=== PATIENT | female | born 2000 | race African-American/Black ===

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

== ENCOUNTER 2022-01-14 17:32 | Observation (INO) | payer OTHER, SELFPAY ==
[2022-01-14] VITALS (10 sets, daily range): BP systolic 121–146; BP diastolic 54–102; PULSE 96–126
--- NOTE | 2022-01-14 18:16 | PM.OBTRLD ---
OB - Triage/Final Diagnosis Visit Information Date of evaluation: 01/14/22 Reason for evaluation: threatened labor Comments/Additional reasons for admission: I have assessed the risk for this patient, Carol Alex Mcintosh, and determined that she would benefit from observation care.
--- NOTE | 2022-01-14 22:54 | PC.NURSE ---
1817- Dr. Yara Stallings in dept. informed of pt admission for bleeding and abdominal cramping. no blood noted on visual exam. FHT reviewed. order for SVE received. 1822- Dr. Yara Stallings informed of cervical exam of closed and soft. order received to monitor pt for a couple hours and may d/c home if reactive NST and no further bleeding.
== END 2022-01-14 20:40 | disposition home or self-care (01) ==
PROVIDERS: Admitting Provider Obstetrics & Gynecology; Visit Provider Obstetrics & Gynecology
DX: O47.03 False labor before 37 completed weeks of gestation, third trimester (principal); Z3A.36 36 weeks gestation of pregnancy
CPT/HCPCS: G0378; G0379

== ENCOUNTER 2022-01-22 14:56 | Observation (INO) | payer OTHER, SELFPAY ==
--- NOTE | ~2022-01-22 | US_ITS ---
EXAMINATION: US OB limited w BPP DATE: 01/22/2022 16:54 INDICATION: Nonreactive nonstress test. Third trimester. TECHNIQUE: Real-time pelvic ultrasound was performed. COMPARISON: None. FINDINGS: There is a single living fetus in vertex presentation. The placenta is anterior. heart rate is 152 beats per minute (bpm). The amniotic fluid index is 9.0 cm, which is normal. Biophysical profile performed by the technologist: breathing (30 sec sustained breathing in 30 minutes): 2 out of 2 movement (3 gross body movements in 30 minutes): 2 out of 2 tone (one episode of hfsmsax-[id number]-qxogpbf limb movement): 2 out of 2 Amniotic fluid pocket (2 cm): 2 out of 2 Total score: 8 out of 8 IMPRESSION: 1. Single living fetus in vertex presentation. 2. Biophysical profile 8 out of 8. Reviewed, dictated and finalized at location A.
--- NOTE | 2022-01-22 17:14 | PM.OBTRLD ---
OB - Triage/Final Diagnosis Visit Information Date of evaluation: 01/22/22 Reason for evaluation: threatened labor Comments/Additional reasons for admission: I have assessed the risk for this patient, Carol Alex Mcintosh, and determined that she would benefit from observation care.
--- NOTE | 2022-01-22 17:34 | OBADM ---
This patient, Carol Mcintosh, admitted to the OB room Labor/Delivery/Recovery 107 for observation. Patient/family oriented to hospital policies and general routines including ID bracelet, bed and alarms, visiting hours, pain management, procedures, bathroom and other care routines, personal items, smoking policy, room service/diet, and visiting hours. Patient/Family are encouraged to report perceived risks to care and to ask questions if they do not understand what they are told or what they should do.
== END 2022-01-22 17:30 | disposition home or self-care (01) ==
PROVIDERS: Admitting Provider Obstetrics & Gynecology; Visit Provider Obstetrics & Gynecology
DX: O47.1 False labor at or after 37 completed weeks of gestation (principal); Z3A.37 37 weeks gestation of pregnancy
CPT/HCPCS: 76815; 76819; 84112; G0378; G0379

== ENCOUNTER 2022-01-29 06:04 | Inpatient (IN) | payer OTHER, SELFPAY ==
[2022-01-29] VITALS (77 sets, daily range): BP systolic 89–161; BP diastolic 40–98; PULSE 71–122; RESP 16; TEMP 36.2–36.8; O2SAT 100; BMI 28.6
[2022-01-29 06:56] LABS: Basophils Percent Auto 0.3 % (0.2-1.2); Eosinophils Percent Auto 0.3 % (0-4.4); Hematocrit 35.1 % (37.0-47.0); Hemoglobin 10.9 g/dL (12.0-15.0); Immature Granulocyte Absolute 0.05 K/mm3 (0.00-0.031); Immature Granulocyte Percent A 0.4 % (0-0.5); Lymphocytes Absolute Auto 2.51 K/mm3 (0.9-3.2); Lymphocytes Percent Auto 18.1 % (18.3-44.2); Mean Corpuscular HGB Conc 31.1 g/dl (32-36); Mean Corpuscular Hemoglobin 22.3 pg (26-34); Mean Corpuscular Volume 71.8 fl (80-100); Mean Platelet Volume 11.3 fl (7.4-10.4); Monocytes Percent Auto 7.2 % (2.6-8.5); Neutrophils Absolute Auto 10.2 K/mm3 (1.3-6.7); Neutrophils Percent Auto 73.7 % (45.5-73.1); Platelet Count Result 236 k/mm3 (150-375); Red Blood Count 4.89 M/mm3 (4.2-5.4); Red Cell Distribution Width 16.2 % (11.5-14.5); White Blood Count 13.8 K/mm3 (4.5-10.0)
[2022-01-29 07:14] LABS: Alanine Aminotransferase 12 U/L (6-35); Albumin Level 3.7 g/dL (3.7-5.6); Alkaline Phosphatase 213 U/L (45-116); Anion Gap 10 mmol/L (8-16); Aspartate Amino Transferase 18 U/L (14-36); Bilirubin,Total 0.4 mg/dL (0.2-1.3); Blood Urea Nitrogen 5 mg/dL (8-21); Calcium 8.6 mg/dL (8.9-10.7); Carbon Dioxide 20 mmol/L (22-30); Chloride 105 mmol/L (98-107); Estimated CRCL calculation 167 ml/min; Estimated Glomerular Filt Rate > 60; Glucose 79 mg/dL (65-110); Potassium 3.5 mmol/L (3.4-5.0); Sodium 135 mmol/L (134-143)
--- NOTE | 2022-01-29 07:14 | PM.IMHP ---
H&P: HPI History of Present Illness Date/Time: 01/29/22 07:14 Chief Complaint: Induction of labor secondary to elevated blood pressures Narrative: this is a 21-year-old 2 para 1 who is on labetalol chronically with worsening blood pressures. Her has been uncomplicated with negative group B strep. Her EDC is 02/07 [id number] trimester ultrasound putting her at 38 and half weeks gestation. [facility] Past Medical History Medical History Asthma GBS (group B Streptococcus carrier), +RV culture, currently Heterozygous MTHFR mutation [id number] History of chlamydia Intrauterine in teenager PIH ( induced hypertension) Scoliosis Family History Family History Grandparent Acute myocardial infarction Sibling History of blood clots Social History Social History Smoking status: Never smoker Second hand tobacco smoke exposure: No Alcohol intake: never Substance use: never Substance use type: does not use Has the Lack of Transportation Kept You From Medical Appointments or From Getting Medications?: No Within the Past 12 Months, Were You Worried Whether Your Food Would Run Out Before You Got Money to Buy More?: Never True What is Your Housing Situation Today?: I Have Housing Are You Worried That in the Next 2 Months, You May Not Have Your Own Housing to Live In?: No Do You Have Trouble Paying Your Heating Or Electricity Bill?: No Do You Have Trouble Paying For Medicines?: No Are You Currently Unemployed and Looking for Work?: Yes Highest Level of Education Completed: High School Diploma/GED Do You Have Trouble With Childcare or the Care of a Family Member?: No Gender identity (if verbalized by the patient): Female Sexual Orientation (if Verbalized by the Patient): Straight or Heterosexual Spiritual care concerns: No Agree to blood products: Yes Meds Home Medications and Allergies Home Medications Medication Instructions Recorded Confirmed Type albuterol sulfate 90 mcg/actuation 90 mcg inhalation PRN 01/28/21 01/29/21 History aerosol inhaler (ProAir HFA) ferrous sulfate 325 mg (65 mg 65 mg PO BIDWMEAL #100 tabs 01/29/21 01/28/21 Rx iron) tablet (FeroSul) vitamins no.119-iron 1 tablet PO DAILY #100 tabs 01/29/21 01/28/21 Rx fumarate 29 mg-folic acid 1 mg tablet (Se--19) Allergies Allergy/AdvReac Type Severity Reaction Status Date / Time No Known Allergies Allergy Verified 01/14/22 18:11 Exam Const: General: cooperative, healthy appearing, comfortable and well groomed Nutritional Appearance: average body habitus Orientation/consciousness: oriented to person, oriented to place and oriented to time HENMT: Head: normal to inspection Resp: Effort & Inspection: normal respiratory effort GI: Inspection: normal to inspection ( Gravid soft uterus) Auscultation: normal bowel sounds : External Female Exam: normal external appearance Speculum Exam - Vagina: normal appearance of the vagina Speculum Exam - Cervix: normal appearance of the cervix ( cervix 80/1. AROM clear. FHTs reassuring) H&P: Results Labs Labs: Short CBC 01/29/22 Range/Units 06:44 WBC 13.8 H (4.5-10.0) K/mm3 Hgb 10.9 L (12.0-15.0) g/dL Hct 35.1 L (37.0-47.0) % Plt Count 236 (150-375) k/mm3 BMP 01/29/22 06:44 Sodium 135 Potassium 3.5 Chloride 105 Carbon Dioxide 20 L BUN 5 L Creatinine 0.50 L Glucose 79 Calcium 8.6 L Liver Function 01/29/22 Range/Units 06:44 Total Bilirubin 0.4 (0.2-1.3) mg/dL AST 18 (14-36) U/L ALT 12 (6-35) U/L Alkaline Phosphatase 213 H (45-116) U/L Albumin 3.7 (3.7-5.6) g/dL Assessment and Plan Assessment and plan (1) Term : Code(s): Z34.90 - Encounter for denae
[2022-01-29 07:34] LABS: Platelet Estimate Adequate (Adequate)
[2022-01-29 07:35] LABS: Anisocytosis 1+ (NORMAL); Atypical Lymphocytes Present; Microcytosis 1+ (NORMAL); Schistocytes None Seen (NORMAL)
[2022-01-29] MEDS: LACTATED RINGERS 1,000 ML 125 ML IV CONT ×2 (07:45→11:15)
[2022-01-29] MEDS: OXYTOCIN 30 UNITS/NS 500 ML 30 UNITS/500 ML BAG IV CONT (07:46)
--- NOTE | 2022-01-29 08:48 | WPDANESEPP ---
Anes - Eval Pre Procedure Procedure: labor epidural Date/Time: 01/29/22 08:48 Surgeon: britt Preop Diagnosis: pain during labor Pre Op Diagnosis: INDUCTION OF LABOR Patient Data Age: 21 Gender: F Height: 1.7 m Weight: 83 kg Last Vital Signs Temp 36.3 C L 01/29/22 08:21 Pulse 92 01/29/22 08:45 BP 136/66 01/29/22 08:45 Allergies Allergy/AdvReac Type Severity Reaction Status Date / Time No Known Allergies Allergy Verified 01/14/22 18:11 Home Medications Medication Instructions Recorded Confirmed Type albuterol sulfate 90 mcg/actuation 90 mcg inhalation PRN 01/28/21 01/29/22 History aerosol inhaler (ProAir HFA) ferrous sulfate 325 mg (65 mg 65 mg PO BIDWMEAL #100 tabs 01/29/21 01/29/22 Rx iron) tablet (FeroSul) vitamins no.119-iron 1 tablet PO DAILY #100 tabs 01/29/21 01/29/22 Rx fumarate 29 mg-folic acid 1 mg tablet (Se-Damien-19) Laboratory Tests 01/29/22 01/29/22 01/29/22 06:44 06:44 06:44 WBC 13.8 K/mm3 H K/mm3 (4.5-10.0) RBC 4.89 M/mm3 M/mm3 (4.2-5.4) Hgb 10.9 g/dL L g/dL (12.0-15.0) Hct 35.1 % L % (37.0-47.0) MCV 71.8 fl L fl (80-100) MCH 22.3 pg L pg (26-34) MCHC 31.1 g/dl L g/dl (32-36) RDW 16.2 % H % (11.5-14.5) Plt Count 236 k/mm3 k/mm3 (150-375) MPV 11.3 fl H fl (7.4-10.4) Immature Gran % (Auto) 0.4 % % (0-0.5) Neut % (Auto) 73.7 % H % (45.5-73.1) Lymph % (Auto) 18.1 % L % (18.3-44.2) Glenn % (Auto) 7.2 % % (2.6-8.5) Eos % (Auto) 0.3 % % (0-4.4) Baso % (Auto) 0.3 % % (0.2-1.2) Lymph # (Auto) 2.51 K/mm3 K/mm3 (0.9-3.2) Glenn # (Auto) 1.0 K/mm3 H K/mm3 (0.1-0.6) Eos # (Auto) 0.0 K/mm3 K/mm3 (0-0.3) Baso # (Auto) 0.0 K/mm3 K/mm3 (0.0-0.1) Abs Immat Gran (auto) 0.05 K/mm3 H K/mm3 (0.00-0.031) Absolute Neuts (auto) 10.2 K/mm3 H K/mm3 (1.3-6.7) Absolute Nucleated RBC 0.0 K/mm3 K/mm3 (0.0-0.012) Nucleated RBC % 0.0 % % (0.0-0.2) Atypical Lymphocytes Present Platelet Estimate Adequate (Adequate) Anisocytosis 1+ (NORMAL) Microcytosis 1+ (NORMAL) Schistocytes None seen (NORMAL) Sodium Potassium Chloride Carbon Dioxide Anion Gap BUN Creatinine Estim Creat Clear Calc Estimated GFR Glucose Calcium Total Bilirubin AST ALT Alkaline Phosphatase Total Protein Albumin RPR Pending Blood Type O Positive Antibody Screen Negative 01/29/22 06:44 WBC RBC Hgb Hct MCV MCH MCHC RDW Plt Count MPV Immature Gran % (Auto) Neut % (Auto) Lymph % (Auto) Glenn % (Auto) Eos % (Auto) Baso % (Auto) Lymph # (Auto) Glenn # (Auto) Eos # (Auto) Baso # (Auto) Abs Immat Gran (auto) Absolute Neuts (auto) Absolute Nucleated RBC Nucleated RBC % Atypical Lymphocytes Platelet Estimate Anisocytosis Microcytosis Schistocytes Sodium 135 mmol/L mmol/L (134-143) Potassium 3.5 mmol/L mmol/L (3.4-5.0) Chloride 105 mmol/L mmol/L (98-107) Carbon Dioxide 20 mmol/L L mmol/L (22-30) Anion Gap 10 mmol/L mmol/L (8-16) BUN 5 mg/dL L mg/dL (8-21) Creatinine 0.50 mg/dL L mg/dL (0.7-1.0) Estim Creat Clear Calc 167 ml/min ml/min Estimated GFR > 60 (59 - ) Glucose 79 mg/dL mg/dL (65-110) Calcium 8.6 mg/dL L mg/dL (8.9-10.7) Total Bilirubin 0.4 mg/dL mg/dL (0.2-1.3) A
[2022-01-29] MEDS: fentaNYL CITRATE INJ (*CRX) 100 MCG/2 ML VIAL IV PUSH (10:54)
--- NOTE | 2022-01-29 12:13 | PM.OBPNLAB ---
Pain Control Date/time seen: 01/29/22 12:13 Pain control: tolerating well and epidural Pelvic Exam Dilation (cm): 3 Amniotic membrane status: Leaking Contractions Monitor mode: Internal
[2022-01-29] MEDS: SODIUM CHLORIDE 0.9% IV 300 ML 600 ML I-UTERINE (14:51)
--- NOTE | 2022-01-29 16:09 | PM.OBPNLAB ---
Pain Control Date/time seen: 01/29/22 16:09 Pain control: tolerating well and epidural Pelvic Exam Dilation (cm): 10 Effacement (%): 100 station: +1 Amniotic membrane status: Leaking Contractions Monitor mode: Internal
--- NOTE | 2022-01-29 16:33 | P.PCNOB_ITS ---
OB - Delivery Note Procedure Delivery date: 01/29/22 Procedure: mil Events: Gestational Hypertension Induction method: AROM Delivery augmentation: Pitocin Delivery monitor: External FHT and Internal Uterine Route of delivery: Episiotomy description: None Laceration Description: None Specimen: No Quantitative Blood Loss (ml): 59 Anesthesia type: Epidural Disposition: Floor [place] Baby Date of : 01/29/22 Time of : 16:24 Weeks of gestation at delivery: 38 Infant gender: Female Weight (pounds): 5 Weight (ounces): 12 presentation: vertex position: Right Occiput Anterior Placenta delivery description: Spontaneous Cord Vessel Description: 3 Vessels, Nuchal Cord, Loose and Reduced score one minute: 7 score five minutes: 9
[2022-01-29 17:25] LABS: Rapid Plasma Reagin Non-Reactive (NonReactive)
[2022-01-29] MEDS: BENZOCAINE 20% AER SPR (*SP) 56 GM CAN 1 SPRAY TOPICAL (19:36)
[2022-01-29] MEDS: WITCH HAZEL 40 PADS 1 PAD TOPICAL (19:36)
[2022-01-30 05:47] LABS: Hematocrit 34.1 % (37.0-47.0); Hemoglobin 10.4 g/dL (12.0-15.0)
--- NOTE | 2022-01-30 06:49 | PM.DS ---
DS: Admitting Diagnosis Discharge Date Admitting Diagnosis term with hypertension DS: Discharge Diagnosis Discharge Diagnosis (1) Chronic hypertension: Code(s): I10 - Essential (primary) hypertension Status: Acute (2) Term : Code(s): Z34.90 - Encounter for supervision of normal , unspecified, unspecified trimester Status: Acute DS: Summary Hospital Course Reason for hospitalization: induction of labor at term Hospital Course: this is a 21-year-old 2 now para 2 who is admitted at term for induction of labor secondary to elevated blood pressures. She underwent spontaneous vaginal delivery which was unremarkable. Her blood pressures remained stable. She was up, voiding the difficulty, ambulating, generally without complaints. Time Spent with Patient Time attestation: Total time spent providing and/or coordinating discharge services: Exam Const: General: cooperative, healthy appearing and comfortable Nutritional Appearance: average body habitus Orientation/consciousness: oriented to person, oriented to place and oriented to time HENMT: Head: normal to inspection Resp: Effort & Inspection: normal respiratory effort GI: Inspection: normal to inspection DS: Data Data Completed and Pending Labs on day of discharge: Labs from last 24 hours 01/30/22 01/29/22 01/29/22 04:50 06:44 06:44 WBC RBC Hgb 10.4 L Hct 34.1 L MCV MCH MCHC RDW Plt Count MPV Immature Gran % (Auto) Neut % (Auto) Lymph % (Auto) [place] % (Auto) Eos % (Auto) Baso % (Auto) Lymph # (Auto) [place] # (Auto) Eos # (Auto) Baso # (Auto) Abs Immat Gran (auto) Absolute Neuts (auto) Absolute Nucleated RBC Nucleated RBC % Atypical Lymphocytes Platelet Estimate Anisocytosis Microcytosis Schistocytes Sodium 135 Potassium 3.5 Chloride 105 Carbon Dioxide 20 L Anion Gap 10 BUN 5 L Creatinine 0.50 L Estim Creat Clear Calc 167 Estimated GFR > 60 Glucose 79 Calcium 8.6 L Total Bilirubin 0.4 AST 18 ALT 12 Alkaline Phosphatase 213 H Total Protein 7.0 Albumin 3.7 RPR Blood Type O Positive Antibody Screen Negative 01/29/22 01/29/22 06:44 06:44 WBC 13.8 H RBC 4.89 Hgb 10.9 L Hct 35.1 L MCV 71.8 L MCH 22.3 L MCHC 31.1 L RDW 16.2 H Plt Count 236 MPV 11.3 H Immature Gran % (Auto) 0.4 Neut % (Auto) 73.7 H Lymph % (Auto) 18.1 L [place] % (Auto) 7.2 Eos % (Auto) 0.3 Baso % (Auto) 0.3 Lymph # (Auto) 2.51 [place] # (Auto) 1.0 H Eos # (Auto) 0.0 Baso # (Auto) 0.0 Abs Immat Gran (auto) 0.05 H Absolute Neuts (auto) 10.2 H Absolute Nucleated RBC 0.0 Nucleated RBC % 0.0 Atypical Lymphocytes Present Platelet Estimate Adequate Anisocytosis 1+ Microcytosis 1+ Schistocytes None seen Sodium Potassium Chloride Carbon Dioxide Anion Gap BUN Creatinine Estim Creat Clear Calc Estimated GFR Glucose Calcium Total Bilirubin AST ALT Alkaline Phosphatase Total Protein Albumin RPR Non-reactive Blood Type Antibody Screen Discharge Plan Discharge Attending physician on discharge: Kj Lanza Discharging Clinician: Kj Lanza Patient Disposition: Home, Self-Care Activity: may shower, no straining and pelvic rest Diet: heart healthy Wound Care Instructions: follow printed instructions Patient Instructions: Antibiotic Form Stand Alone Forms: General Discharge Information Follow-up/Referrals: Kj Lanza MD [Physician] - Discharge Medications: Continued albuterol sulfate [ProAir HFA] 90 mcg/actuation HFA aerosol inhaler 90 mcg INHALATION PRN ferrous sulfate [FeroSul] 325 mg (65 mg iron) tablet 65 mg PO BIDWMEAL Qty: 100 3RF Se-Damien-19 29 mg iron- 1 mg tablet
--- NOTE | 2022-01-30 06:52 | PM.OBPNVD ---
OB - PN: Subj Subjective Date/time seen: 01/30/22 06:52 Patient comments: no complaints and pain well controlled baby status: doing well OB - PN: Obj Data Labs CBC & Chem 7: 01/30/22 04:50 01/29/22 06:44 Labs: Laboratory Results - last 24 hr 01/29/22 01/29/22 01/29/22 06:44 06:44 06:44 WBC 13.8 H RBC 4.89 Hgb 10.9 L Hct 35.1 L MCV 71.8 L MCH 22.3 L MCHC 31.1 L RDW 16.2 H Plt Count 236 MPV 11.3 H Immature Gran % (Auto) 0.4 Neut % (Auto) 73.7 H Lymph % (Auto) 18.1 L [place] % (Auto) 7.2 Eos % (Auto) 0.3 Baso % (Auto) 0.3 Lymph # (Auto) 2.51 [place] # (Auto) 1.0 H Eos # (Auto) 0.0 Baso # (Auto) 0.0 Abs Immat Gran (auto) 0.05 H Absolute Neuts (auto) 10.2 H Absolute Nucleated RBC 0.0 Nucleated RBC % 0.0 Atypical Lymphocytes Present Platelet Estimate Adequate Anisocytosis 1+ Microcytosis 1+ Schistocytes None seen Sodium Potassium Chloride Carbon Dioxide Anion Gap BUN Creatinine Estim Creat Clear Calc Estimated GFR Glucose Calcium Total Bilirubin AST ALT Alkaline Phosphatase Total Protein Albumin RPR Non-reactive Blood Type O Positive Antibody Screen Negative 01/29/22 01/30/22 06:44 04:50 WBC RBC Hgb 10.4 L Hct 34.1 L MCV MCH MCHC RDW Plt Count MPV Immature Gran % (Auto) Neut % (Auto) Lymph % (Auto) [place] % (Auto) Eos % (Auto) Baso % (Auto) Lymph # (Auto) [place] # (Auto) Eos # (Auto) Baso # (Auto) Abs Immat Gran (auto) Absolute Neuts (auto) Absolute Nucleated RBC Nucleated RBC % Atypical Lymphocytes Platelet Estimate Anisocytosis Microcytosis Schistocytes Sodium 135 Potassium 3.5 Chloride 105 Carbon Dioxide 20 L Anion Gap 10 BUN 5 L Creatinine 0.50 L Estim Creat Clear Calc 167 Estimated GFR > 60 Glucose 79 Calcium 8.6 L Total Bilirubin 0.4 AST 18 ALT 12 Alkaline Phosphatase 213 H Total Protein 7.0 Albumin 3.7 RPR Blood Type Antibody Screen OB - PN A/P Plan day: 1 Plan: routine care, discharge home and follow up 6 weeks Time Spent With Patient Time: Total time spent is greater than 50% in coordination of care (as documented) at patient's floor/unit and/or counseling patient: Time with patient: less than 15 minutes Exam Const: General: cooperative, healthy appearing and comfortable Nutritional Appearance: average body habitus Orientation/consciousness: oriented to person, oriented to place and oriented to time HENMT: Head: normal to inspection Resp: Effort & Inspection: normal respiratory effort GI: Inspection: normal to inspection
[2022-01-30 07:40] VITALS: BP 128/83; PULSE 78; RESP 18; TEMP 37.3; O2SAT 100
[2022-01-30 09:49] VITALS: PULSE 78; RESP 18; O2SAT 100
[2022-01-30 11:49] VITALS: BP 116/67; PULSE 89; RESP 16; TEMP 36.8; O2SAT 100
[2022-01-30] MEDS: ACETAMINOPHEN 325 MG TABLET 650 MG PO (13:00)
--- NOTE | 2022-01-30 13:07 | WPDANLDPN2 ---
Anes-Prog Note L&D Date/Time: 01/30/22 13:07 Neuro status: Neuro function grossly intact. Vital Signs: Last Vital Signs Temp 36.8 C 01/30/22 11:49 Pulse 89 01/30/22 11:49 Resp 16 01/30/22 11:49 BP 116/67 01/30/22 11:49 Pulse Ox 100 01/30/22 11:49 O2 Del Method Room Air 01/30/22 09:49 Pain score (VAS): 0 I/O: Intake & Output 01/29/22 01/30/22 01/30/22 23:59 07:59 15:59 Intake Total 500 500 Balance 500 500 Patient feedback: Patient satisfied with anesthetic care.
[2022-01-30 13:30] VITALS: PULSE 89; RESP 16; O2SAT 100
[2022-02-02 10:44] VITALS: BP 140/90; PULSE 70; RESP 20; TEMP 36.8; O2SAT 100
== END 2022-01-30 17:55 | disposition home or self-care (01) | DRG 560 ==
LOC: ANHLDR 06:08 → ANHOB2 19:58
PROVIDERS: Admitting Provider Obstetrics & Gynecology; Visit Provider Obstetrics & Gynecology
DX: O13.4 Gestational [pregnancy-induced] hypertension without significant proteinuria, complicating childbirth (principal); O36.8330 Maternal care for abnormalities of the fetal heart rate or rhythm, third trimester, not applicable or unspecified; Z37.0 Single live birth; Z3A.38 38 weeks gestation of pregnancy; O69.81X0 Labor and delivery complicated by cord around neck, without compression, not applicable or unspecified
CPT/HCPCS: 36415; 80053; 85014; 85018; 85025; 86592; 86850; 86900; 86901; A9270; J2590; J2795; J3010; J7030; J7120

== ENCOUNTER 2022-05-29 22:15 | Emergency (ER) | payer OTHER, SELFPAY ==
[2022-05-29] VITALS (10 sets, daily range): BP systolic 139–164; BP diastolic 80–89; PULSE 113–130; RESP 15–25; TEMP 36.9; O2SAT 94–100
--- NOTE | 2022-05-29 22:20 | ECG_ITS ---
Measurements Intervals [place] Rate: 120 P: 52 OR: 159 QRS: 64 QRSD: 76 T: 27 QT: 424 QTc: 601 Interpretive Statements SINUS TACHYCARDIA ABNORMAL RHYTHM ECG COMPARED TO ECG 08/02/2021 17:42:40 HEART RATE IS INCREASED Electronically Signed On 05-30-2022 7:53:43 [employer] SET UP MECHANIC by Hubert Gonzalez M.D.
--- NOTE | 2022-05-29 22:41 | ED.GENADULT ---
HPI - General Adult General Chief complaint: Unspecified Stated complaint: anxiety Time Seen by Provider: 05/29/22 22:15 History of Present Illness HPI narrative: Patient is a 22-year-old female who presents the emergency department with chief complaint of feeling strange. Patient reports this evening she decided to purchase some edibles from a local dispensary and proceeded to eat her first edible. The patient states afterwards she felt very anxious and very paranoid. Patient states she feels very strange. The patient states that she felt as though she was having a heart attack Related Data Home Medications Medication Instructions Recorded Confirmed albuterol sulfate 90 mcg/actuation 90 mcg inhalation PRN 01/28/21 01/29/22 aerosol inhaler (ProAir HFA) Allergies Allergy/AdvReac Type Severity Reaction Status Date / Time No Known Allergies Allergy Verified 05/29/22 22:20 Review of Systems Review of Systems: A 10 system review of systems was completed on the patient and is negative except for what is stated in the HPI. Nursing and ancillary documentation was reviewed. 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 History of chlamydia Intrauterine in teenager PIH ( induced hypertension) Scoliosis Family History Family History Grandparent Acute myocardial infarction Sibling History of blood clots Social History Social History Smoking status: Never smoker Second hand tobacco smoke exposure: No Alcohol intake: never Substance use: never Substance use type: does not use Lack of Transportation: No Lack of Food: Never True Current Housing: I Have Housing Concerned About Future Housing: No Difficulty Paying Gas/Electric Bills: No Difficulty Paying for Meds: No Currently Unemployed: YES Education: High School Diploma/GED Difficulty w/ Childcare or Family Care: No Living arrangements: with family Occupation/Education: student Gender identity (if verbalized by the patient): Female Sexual Orientation (if Verbalized by the Patient): Straight or Heterosexual Spiritual care concerns: No Agree to blood products: Yes Exam Narrative: GENERAL: Well-appearing, well-nourished, and in no acute distress. HEAD: Normocephalic, atraumatic. EYES: PERRLA and EOMI. ENT: Nares clear, no rhinorrhea or epistaxis. Mucous membranes moist. NECK: Supple. CHEST: Clear to auscultation. No respiratory distress. HEART: Tachycardic rate and rhythm. No murmur heard. Normal peripheral pulses. ABDOMEN: Soft, nontender, nondistended, normal active bowel sounds. EXTREMITIES: Normal range of motion. No edema. SKIN: Warm, dry, no rash. NEURO: No focal deficits. Alert and oriented x3. PSYCH: Normal mood and affect. Course Vital Signs Vital signs: Vital Signs Pulse Rate 126 H 05/29/22 22:15 Respiratory Rate 22 H 05/29/22 22:15 Pulse Oximetry 100 05/29/22 22:15 Temperature 36.9 C 05/29/22 22:18 Pulse Rate 109 H 05/30/22 01:35 Respiratory Rate 25 H 05/30/22 01:00 Blood Pressure 138/86 05/30/22 01:35 Pulse Oximetry 100 05/30/22 01:35 Oxygen Delivery Room Air 05/29/22 22:18 Medical Decision Making MDM Narrative Medical decision making narrative: Patient will be observed in the emergency department hydrated and given a dose of Ativan. Differential diagnosis includes reaction to edibles Patient was observed in the emergency department hydrated and is feeling much better at this time Vital Signs Vital Signs: Vital Signs Pulse Rate 126 H 05/29/22 22:15 Respiratory Rate 22 H 05/29/22 22:15 Pulse Oximetry 100 05/29/22 22:15 Temper
[2022-05-29] MEDS: SODIUM CHLORIDE 0.9% IV 1,000 ML 999 ML IV CONT (22:58)
[2022-05-29] MEDS: LORazepam INJ (*CRX) 2 MG/ML VIAL 0.5 MG IV PUSH (22:59)
[2022-05-30] VITALS (9 sets, daily range): BP systolic 138–166; BP diastolic 66–95; PULSE 98–125; RESP 16–26; O2SAT 74–100
== END 2022-05-30 01:52 | disposition home or self-care (01) ==
PROVIDERS: Emergency Provider Emergency Medicine; PCP Emergency Medicine
DX: F12.929 Cannabis use, unspecified with intoxication, unspecified (principal); J45.909 Unspecified asthma, uncomplicated; R00.0 Tachycardia, unspecified
CPT/HCPCS: 93005; 96361; 96374; 99284; J2060; J7030

== ENCOUNTER 2022-06-25 17:49 | Emergency (ER) | payer OTHER, SELFPAY ==
--- NOTE | ~2022-06-25 | XR_ITS ---
XR chest 2V DATE: 06/25/2022 18:36 INDICATION: Midsternal chest pain. History of anxiety. TECHNIQUE: PA and lateral views COMPARISON: 08/02/2021 CTA chest FINDINGS: Normal heart size. No hilar or mediastinal enlargement. No pulmonary infiltrate or consolid ation, pleural effusion or pulmonary vascular congestion or pneumothorax. IMPRESSION: No active cardiopulmonary disease Reviewed, dictated and finalized at location A.
--- NOTE | 2022-06-25 18:18 | ECG_ITS ---
Measurements Intervals [place] Rate: 101 P: 5 NC: 136 QRS: 75 QRSD: 69 T: 38 QT: 322 QTc: 418 Interpretive Statements SINUS TACHYCARDIA BORDERLINE ECG COMPARED TO ECG 05/29/2022 22:29:26 NO SIGNIFICANT CHANGES Electronically Signed On 06-25-2022 20:48:34 CDT by Jose E Gutierrez D.O.
[2022-06-25 18:19] VITALS: PULSE 96; RESP 14; TEMP 36.4; O2SAT 100
[2022-06-25 18:37] LABS: Basophils Absolute Auto 0.1 K/mm3 (0.0-0.1); Basophils Percent Auto 0.7 % (0.2-1.2); Eosinophils Percent Auto 0.1 % (0-4.4); Hemoglobin 13.6 g/dL (12.0-15.0); Immature Granulocyte Absolute 0.02 K/mm3 (0.00-0.031); Immature Granulocyte Percent A 0.3 % (0-0.5); Lymphocytes Absolute Auto 2.19 K/mm3 (0.9-3.2); Lymphocytes Percent Auto 29.7 % (18.3-44.2); Mean Corpuscular HGB Conc 30.9 g/dl (32-36); Mean Corpuscular Hemoglobin 24.2 pg (26-34); Mean Corpuscular Volume 78.2 fl (80-100); Mean Platelet Volume 9.4 fl (7.4-10.4); Monocytes Absolute Auto 0.6 K/mm3 (0.1-0.6); Monocytes Percent Auto 7.5 % (2.6-8.5); Neutrophils Absolute Auto 4.6 K/mm3 (1.3-6.7); Neutrophils Percent Auto 61.7 % (45.5-73.1); Platelet Count Result 339 k/mm3 (150-375); Red Blood Count 5.63 M/mm3 (4.2-5.4); Red Cell Distribution Width 14.2 % (11.5-14.5); White Blood Count 7.4 K/mm3 (4.5-10.0)
[2022-06-25 18:49] LABS: Alanine Aminotransferase 19 U/L (6-35); Albumin Level 4.8 g/dL (3.5-5.1); Alkaline Phosphatase 124 U/L (38-126); Anion Gap 8 mmol/L (8-16); Aspartate Amino Transferase 28 U/L (14-36); Bilirubin,Total 0.9 mg/dL (0.2-1.3); Blood Urea Nitrogen 8 mg/dL (7-17); Calcium 9.4 mg/dL (8.4-10.2); Carbon Dioxide 24 mmol/L (22-30); Chloride 105 mmol/L (98-107); Estimated CRCL calculation 111 ml/min; Estimated Glomerular Filt Rate > 60; Glucose 95 mg/dL (65-110); Lipase 21 U/L (23-300); Potassium 4.2 mmol/L (3.4-5.0); Sodium 137 mmol/L (137-145)
[2022-06-25 18:58] LABS: INR 1.1; Prothrombin Time 13.9 Seconds (11.1-14.7)
[2022-06-25 18:59] LABS: Partial Thromboplastin Time 32.1 SECONDS (22.3-36.8); Troponin I < 0.012 ng/mL (0.000-0.034)
--- NOTE | 2022-06-25 22:51 | ED.CHESTPAIN ---
HPI - Chest Pain General Chief Complaint: Chest Pain Stated Complaint: chest pain x1 week Time Seen by Provider: 06/25/22 22:51 Source: patient Mode of arrival: ambulatory Limitations: no limitations History of Present Illness HPI narrative: Patient is a 22-year-old female with a history of asthma presenting to the emergency department for evaluation of chest pain. Patient reports chest pain has been constant over the past week pain in the center of her chest. At the time of my assessment patient states that her chest pain has resolved. She denies cough, hemoptysis, pleuritic pain. There was no radiation of the pain to the jaw, neck, shoulder or back. No associated fever or chills. Patient without history of coagulopathy. No history of leg swelling or calf pain. She is not on oral contraception. She denies recent illness. No known recent COVID infection. No recent sick contacts. Pt does not smoke cigarettes or vape. No recent surgery or immobility. No recent long car or air travel. Pt without family history of sudden cardiac . Pt without recent fall or injury. No worsening wheezing or dyspnea. Related Data Home Medications Medication Instructions Recorded Confirmed albuterol sulfate 90 mcg/actuation 90 mcg inhalation PRN 01/28/21 01/29/22 aerosol inhaler (ProAir HFA) Allergies Allergy/AdvReac Type Severity Reaction Status Date / Time No Known Allergies Allergy Verified 06/25/22 17:50 Review of Systems Review of Systems: CONSTITUTIONAL: Denies fever, chills, or sweats. ENT: Denies rhinorrhea, congestion, sore throat, or otalgia. CARDIOVASCULAR: Denies current chest pain, palpitations, or edema. RESPIRATORY: Denies cough or dyspnea. GASTROINTESTINAL: Denies abdominal pain, nausea, vomiting, or diarrhea. GENITOURINARY: Denies dysuria or hematuria. SKIN: Denies rash or itching. MUSCULOSKELETAL: Denies back pain, joint pain, or myalgia. NEUROLOGIC: Denies headache, numbness, or weakness. 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), +RV culture, currently Heterozygous MTHFR mutation [id number] History of chlamydia Intrauterine in teenager PIH ( induced hypertension) Scoliosis Family History Family History Grandparent Acute myocardial infarction Sibling History of blood clots Social History Social History Smoking status: Never smoker Second hand tobacco smoke exposure: No Alcohol intake: never Substance use: never Substance use type: does not use Lack of Transportation: No Lack of Food: Never True Current Housing: I Have Housing Concerned About Future Housing: No Difficulty Paying Gas/Electric Bills: No Difficulty Paying for Meds: No Currently Unemployed: YES Education: High School Diploma/GED Difficulty w/ Childcare or Family Care: No Living arrangements: with family Occupation/Education: student Gender identity (if verbalized by the patient): Female Sexual Orientation (if Verbalized by the Patient): Straight or Heterosexual Spiritual care concerns: No Agree to blood products: Yes Exam Narrative: GENERAL: Awake, alert, conversant HEAD: Normocephalic, atraumatic. EYES: PERRLA and EOMI. ENT: Nares clear, no rhinorrhea or epistaxis. Mucous membranes moist. NECK: Supple. CHEST: No respiratory distress, breathing even and non labored, no chest wall tenderness. Lungs are clear to auscultation bilaterally without wheezing, rhonchi, or rales. HEART: Regular rate, sinus rhythm ABDOMEN:Non distended, non tender EXTREMITIES: Normal range of motion. No edema. No calf pain or tenderness on exam. No erythema or induration. SKIN: Warm, dry, no rash. NEURO:No focal deficits. Alert and oriented x3 Course Vital Signs Vital signs: María
[2022-06-25 23:09] VITALS: BP 142/84; PULSE 95; RESP 20; O2SAT 100
== END 2022-06-25 23:10 | disposition home or self-care (01) ==
PROVIDERS: Emergency Provider Emergency Medicine; PCP Emergency Medicine
DX: R07.89 Other chest pain (principal); R00.0 Tachycardia, unspecified; J45.909 Unspecified asthma, uncomplicated
CPT/HCPCS: 36415; 71046; 80053; 83690; 84484; 85025; 85610; 85730; 93005; 99284

== ENCOUNTER 2022-10-16 13:24 | Emergency (ER) | payer OTHER, SELFPAY ==
--- NOTE | 2022-10-16 13:31 | PC.NURSE ---
Spoke with student nurse from OB and RN states to keep patient over here for workup due to patient not having abdominal pain or contractions. Patient does not have any OB care and LMP around 05/10/2022.
[2022-10-16 13:45] VITALS: BP 146/70; PULSE 90; RESP 18; TEMP 36; O2SAT 100
--- NOTE | 2022-10-16 15:30 | ED.GENADULT ---
HPI - General Adult General Chief complaint: Unspecified Stated complaint: Time Seen by Provider: 10/16/22 14:01 Source: patient Mode of arrival: ambulatory Limitations: no limitations History of Present Illness HPI narrative: This is a 22-year-old female who presents to the ED for test. She had a positive home test and is concerned. Reports last normal menstrual period was in May. She is states she is not having any symptoms associated with . Denies any other complaints. She just needs a referral. Related Data Home Medications Medication Instructions Recorded Confirmed albuterol sulfate 90 mcg/actuation 90 mcg inhalation PRN 01/28/21 01/29/22 aerosol inhaler (ProAir HFA) Allergies Allergy/AdvReac Type Severity Reaction Status Date / Time No Known Allergies Allergy Verified 06/25/22 17:50 PMFSH Past Medical History Medical History Asthma GBS (group B Streptococcus carrier), +RV culture, currently Heterozygous MTHFR mutation [id number] History of chlamydia Intrauterine in teenager PIH ( induced hypertension) Scoliosis Family History Family History Grandparent Acute myocardial infarction Sibling History of blood clots Social History Social History Smoking status: Never smoker Second hand tobacco smoke exposure: No Alcohol intake: never Substance use: never Substance use type: does not use Lack of Transportation: No Lack of Food: Never True Current Housing: I Have Housing Concerned About Future Housing: No Difficulty Paying Gas/Electric Bills: No Difficulty Paying for Meds: No Currently Unemployed: YES Education: High School Diploma/GED Difficulty w/ Childcare or Family Care: No Living arrangements: with family Occupation/Education: student Gender identity (if verbalized by the patient): Female Sexual Orientation (if Verbalized by the Patient): Straight or Heterosexual Spiritual care concerns: No Agree to blood products: Yes Exam Narrative: GENERAL: Well-appearing, well-nourished, and in no acute distress. HEAD: Normocephalic, atraumatic. EYES: PERRLA and EOMI. ENT: Nares clear, no rhinorrhea or epistaxis. Mucous membranes moist. Oropharynx without tonsillar hypertrophy exudate or other lesions. NECK: Supple. No adenopathy or masses. CHEST: No respiratory distress. Clear to auscultation. No wheezes rales or rhonchi HEART: Regular rate and rhythm. No murmur heard. Normal peripheral pulses. ABDOMEN: Soft, nontender, nondistended, normal active bowel sounds. MSK: Normal range of motion. No edema. SKIN: Warm, dry, no rash. NEURO: Alert and oriented x3. No focal deficits. PSYCH: Normal mood and affect. Course Vital Signs Vital signs: Vital Signs Temperature 96.8 F L 10/16/22 13:45 Pulse Rate 90 10/16/22 13:45 Respiratory Rate 18 10/16/22 13:45 Blood Pressure 146/70 H 10/16/22 13:45 Pulse Oximetry 100 10/16/22 13:45 Temperature 96.8 F L 10/16/22 13:45 Pulse Rate 90 10/16/22 13:45 Respiratory Rate 18 10/16/22 13:45 Blood Pressure 146/70 H 10/16/22 13:45 Pulse Oximetry 100 10/16/22 13:45 Medical Decision Making MDM Narrative Medical decision making narrative: This is a 22-year-old female who presents to the ED for test and OB referral. She is not having any symptoms. Exam is benign. Vitals are normal. This will be her third child. . test on the urine sample was positive today. She will be discharged stable condition. OB referral given. Vital Signs Vital Signs: Vital Signs Temperature 96.8 F L 10/16/22 13:45 Pulse Rate 90 10/16/22 13:45 Respiratory Rate 18 10/16/22 13:45 Blood Pressure 146/70 H 10/16/22 13:45 Pulse Oximetry
== END 2022-10-16 15:33 | disposition home or self-care (01) ==
PROVIDERS: Emergency Provider Physician Assistant; PCP Emergency Medicine
DX: Z32.01 Encounter for pregnancy test, result positive (principal)
CPT/HCPCS: 81025; 99283

== ENCOUNTER 2022-10-21 14:27 | Outpatient (CLI) | payer OTHER, SELFPAY ==
[2022-10-21 15:49] LABS: Basophils Percent Auto 0.2 % (0.2-1.2); Eosinophils Percent Auto 0.7 % (0-4.4); Hematocrit 35.5 % (37.0-47.0); Hemoglobin 11.2 g/dL (12.0-15.0); Immature Granulocyte Absolute 0.02 K/mm3 (0.00-0.031); Immature Granulocyte Percent A 0.3 % (0-0.5); Mean Corpuscular HGB Conc 31.5 g/dl (32-36); Mean Corpuscular Hemoglobin 25.2 pg (26-34); Mean Platelet Volume 9.8 fl (7.4-10.4); Monocytes Absolute Auto 0.6 K/mm3 (0.1-0.6); Monocytes Percent Auto 9.7 % (2.6-8.5); Neutrophils Percent Auto 66.1 % (45.5-73.1); Platelet Count Result 246 k/mm3 (150-375); Red Blood Count 4.44 M/mm3 (4.2-5.4); Red Cell Distribution Width 14.6 % (11.5-14.5); White Blood Count 6.1 K/mm3 (4.5-10.0)
[2022-10-21 17:48] LABS: Hepatitis B Surface Antigen Negative (Negative); Rubella IgG Antibody 28.8 IU/ML
[2022-10-21 17:58] LABS: HIV 1/2 Ab P24 Ag Result Negative (Negative)
[2022-10-22 10:54] LABS: Rapid Plasma Reagin Non-Reactive (NonReactive)
[2022-10-26 13:01] LABS: Varicella IgG Antibody <135.00 Index (>=165.00)
== END 2022-10-21 14:28 | disposition home or self-care (01) ==
LOC: ANHLAB 14:28
PROVIDERS: PCP Emergency Medicine; Visit Provider Student in an Organized Health Care Education/Training Program
DX: N94.89 Other specified conditions associated with female genital organs and menstrual cycle (principal)
CPT/HCPCS: 36415; 84702; 85025; 85660; 86592; 86644; 86703; 86747; 86762; 86787; 86850; 86900; 86901; 87086; 87088; 87147; 87340; G0432

== ENCOUNTER 2023-03-05 21:45 | Inpatient (IN) | payer OTHER, SELFPAY ==
[2023-03-05 22:02] VITALS: BP 126/70; PULSE 91
[2023-03-05 22:08] VITALS: BMI 27.8
--- NOTE | 2023-03-05 22:22 | OBADM ---
This patient, Carol Mcintosh, admitted to the OB room Labor/Delivery/Recovery 105 for observation. Patient/family oriented to hospital policies and general routines including ID bracelet, bed and alarms, visiting hours, pain management, procedures, bathroom and other care routines, personal items, smoking policy, room service/diet, and visiting hours. Patient/Family are encouraged to report perceived risks to care and to ask questions if they do not understand what they are told or what they should do.
--- NOTE | 2023-03-05 22:53 | LDADM ---
This patient, Carol Mcintosh, was admitted to Labor/Delivery/Recovery 105 on 03/05/23 at 22:30. Plans for labor, pain management and were discussed with patient. Patient/family oriented to hospital policies and general routines including ID bracelet, bed and alarms, visiting hours, pain management, procedures, bathroom and other care routines, personal items, smoking policy, room service/diet and guest tray routines, security routines, and visiting hours. Patient/Family are encouraged to report perceived risks to care and to ask questions if they do not understand what they are told or what they should do. See OBIX for further documentation.
[2023-03-05 23:08] LABS: Basophils Percent Auto 0.3 % (0.2-1.2); Eosinophils Percent Auto 0.3 % (0-4.4); Hematocrit 42.6 % (37.0-47.0); Hemoglobin 13.4 g/dL (12.0-15.0); Immature Granulocyte Absolute 0.03 K/mm3 (0.00-0.031); Immature Granulocyte Percent A 0.4 % (0-0.5); Lymphocytes Absolute Auto 1.82 K/mm3 (0.9-3.2); Lymphocytes Percent Auto 22.9 % (18.3-44.2); Mean Corpuscular HGB Conc 31.5 g/dl (32-36); Mean Corpuscular Hemoglobin 24.6 pg (26-34); Mean Corpuscular Volume 78.2 fl (80-100); Mean Platelet Volume 10.6 fl (7.4-10.4); Monocytes Absolute Auto 0.5 K/mm3 (0.1-0.6); Monocytes Percent Auto 6.5 % (2.6-8.5); Neutrophils Absolute Auto 5.5 K/mm3 (1.3-6.7); Neutrophils Percent Auto 69.6 % (45.5-73.1); Platelet Count Result 191 k/mm3 (150-375); Red Blood Count 5.45 M/mm3 (4.2-5.4); Red Cell Distribution Width 15.5 % (11.5-14.5)
[2023-03-05 23:15] VITALS: RESP 16; TEMP 36.6
[2023-03-05] MEDS: LACTATED RINGERS 1,000 ML 125 ML IV CONT (23:37)
[2023-03-05] MEDS: AMPICILLIN 2 GM/NS 100 ML 2 GM/100 ML BAG IVPB (23:38)
[2023-03-06] VITALS (186 sets, daily range): BP systolic 99–228; BP diastolic 42–203; PULSE 26–216; RESP 16–18; TEMP 36.2–36.8; O2SAT 74–100
[2023-03-06 00:03] LABS: HIV 1/2 Ab P24 Ag Result Negative (Negative)
--- NOTE | 2023-03-06 00:05 | WPDANESEPP ---
Anes - Eval Pre Procedure Procedure: labor epidural Date/Time: 03/06/23 00:05 Pre Op Diagnosis: leaking Patient Data Age: 22 Gender: F Height: 1.7 m Weight: 80.739 kg Last Vital Signs Pulse 91 03/05/23 22:02 BP 126/70 03/05/23 22:02 O2 Del Method Room Air 03/05/23 22:08 Allergies Allergy/AdvReac Type Severity Reaction Status Date / Time No Known Allergies Allergy Verified 02/16/23 11:14 Home Medications Medication Instructions Recorded Confirmed Type ferrous sulfate 325 mg (65 mg 65 mg PO BIDWMEAL #100 tabs 01/29/21 03/05/23 Rx iron) tablet (FeroSul) vitamins no.119-iron 1 tablet PO DAILY #100 tabs 01/29/21 03/05/23 Rx fumarate 29 mg-folic acid 1 mg tablet (Se-Damien-19) Laboratory Tests 03/05/23 22:46 WBC 8.0 K/mm3 (4.5-10.0) RBC 5.45 H M/mm3 (4.2-5.4) Hgb 13.4 g/dL (12.0-15.0) Hct 42.6 % (37.0-47.0) MCV 78.2 L fl (80-100) MCH 24.6 L pg (26-34) MCHC 31.5 L g/dl (32-36) RDW 15.5 H % (11.5-14.5) Plt Count 191 k/mm3 (150-375) MPV 10.6 H fl (7.4-10.4) Immature Gran % (Auto) 0.4 % (0-0.5) Neut % (Auto) 69.6 % (45.5-73.1) Lymph % (Auto) 22.9 % (18.3-44.2) [place] % (Auto) 6.5 % (2.6-8.5) Eos % (Auto) 0.3 % (0-4.4) Baso % (Auto) 0.3 % (0.2-1.2) Lymph # (Auto) 1.82 K/mm3 (0.9-3.2) [place] # (Auto) 0.5 K/mm3 (0.1-0.6) Eos # (Auto) 0.0 K/mm3 (0-0.3) Baso # (Auto) 0.0 K/mm3 (0.0-0.1) Abs Immat Gran (auto) 0.03 K/mm3 (0.00-0.031) Absolute Neuts (auto) 5.5 K/mm3 (1.3-6.7) Absolute Nucleated RBC 0.0 K/mm3 (0.0-0.012) Nucleated RBC % 0.0 % (0.0-0.2) RPR Pending HIV 1&2 Ab/P24 Ag 4thGn Negative (Negative) Patient hx anesthesia problems: none Family hx anesthesia problems: none Results Review: All pre-operative results and documents have been reviewed as part of the pre-operative evaluation. 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 History of chlamydia Intrauterine in teenager PIH ( induced hypertension) Scoliosis Suppression of menses Family History Family History Grandparent Acute myocardial infarction Sibling History of blood clots Social History Social History Smoking status: Never smoker Second hand tobacco smoke exposure: No Alcohol intake: never Substance use: never Substance use type: does not use Lack of Transportation: YES Lack of Food: Never True Current Housing: I Have Housing Concerned About Future Housing: No Difficulty Paying Gas/Electric Bills: No Difficulty Paying for Meds: No Currently Unemployed: No Education: High School Diploma/GED Difficulty w/ Childcare or Family Care: No Living arrangements: with family Occupation/Education: student Gender identity (if verbalized by the patient): Female Sexual Orientation (if Verbalized by the Patient): Straight or Heterosexual Spiritual care concerns: No Agree to blood products: Yes Exam Day of Procedure 03/06/23 00:05 Patient weight: overweight Heart: regular rate and rhythm Lungs: normal air movement Airway: Mallampati scale Neurological: alert and oriented
[2023-03-06] MEDS: LACTATED RINGERS 500 ML 999 ML IV CONT (01:00)
[2023-03-06] MEDS: AMPICILLIN 1 GM/NS 50 ML 1 GM/50 ML BAG IVPB ×2 (03:33→07:27)
[2023-03-06] MEDS: OXYTOCIN 30 UNITS/NS 500 ML 30 UNITS/500 ML BAG IV CONT (03:35)
--- NOTE | 2023-03-06 10:29 | WPDHPUPDATE1 ---
History and Physical Update Update Date/Time: 03/06/23 10:29 History and Physical has been reviewed, including an updated exam of the patient. There are NO changes in the patient's condition. Risks, benefits, and alternatives have been discussed and questions answered. Patient agrees to proceed with procedure.
--- NOTE | 2023-03-06 10:29 | WPDOBADMIT ---
Obstetrics - Admit Note Admission Note: record reviewed. No pertinent additions to the history and/or any subsequent changes in the physical findings that are not consistent with the expected course of the were found. Additions to the history and/or subsequent changes in the physical findings follow. None.
--- NOTE | 2023-03-06 10:30 | PM.OBPRVD ---
OB - Vaginal Delivery Note Procedure Delivery date: 03/06/23 Induction method: None Delivery augmentation: Pitocin Delivery monitor: External FHT and External Uterine Route of delivery: Episiotomy description: None Laceration Description: None Specimen: No Quantitative Blood Loss (ml): 200 Anesthesia type: Epidural Disposition: Floor Complications: No immediate complications Narrative: patient prepped draped in usual manner for this procedure. Maternal expulsive efforts delivered vertex in the rest baby without difficulty. Cord clamped cut and placenta delivered spontaneously. Cervix vagina vulva were inspected with no lacerations or tears. Uterus was well contracted with minimal bleeding. Immediate postoperative condition of mother and baby were both excellent. Baby Weeks of gestation at delivery: 39 gender: Male presentation: vertex position: Right Occiput Anterior Placenta delivery description: Spontaneous Cord Vessel Description: 3 Vessels [facility]G Delivery Billing Delivery Delivery: Delivery Charge
[2023-03-06] MEDS: OXYTOCIN 30 UNITS/NS 500 ML 30 UNITS/500 ML BAG 125 UNITS IV CONT (10:57)
--- NOTE | 2023-03-06 12:49 | PC.NURSE ---
1215- baby began crying in crib while this RN got pt up to bathroom. FOB repeatedly said Shut up... shut the hell up you just want attention to baby. RN educated FOB on appropriate interaction with baby.
[2023-03-06] MEDS: POLYSACCHARIDE IRON COMPLEX 150 MG CAPSULE PO (16:25)
[2023-03-06] MEDS: DOCUSATE SODIUM 100 MG CAPSULE PO (16:25)
[2023-03-07 05:19] LABS: Hematocrit 36.8 % (37.0-47.0); Hemoglobin 11.7 g/dL (12.0-15.0)
--- NOTE | 2023-03-07 07:41 | PM.OBDSVD ---
DS: Admitting Diagnosis Discharge Date 03/07/2023 Admitting Diagnosis DS: Discharge Diagnosis Discharge Diagnosis (1) , delivered: Code(s): O80 - Encounter for full-term uncomplicated delivery Status: Acute OB - DS: Summary OB Procedures : None OB Procedures Intrapartum: Spontaneous Vag Delivery OB Procedures: : None Peripartum Data Laceration Description: None Episiotomy description: None Time Spent with Patient Time attestation: Total time spent providing and/or coordinating discharge services: DS: Data Data Completed and Pending Labs on day of discharge: Labs from last 24 hours 03/07/23 05:09 Hgb 11.7 L Hct 36.8 L Discharge Plan Discharge Discharging Clinician: Richard Mcintosh Patient Disposition: Home, Self-Care Activity: as tolerated Diet: as tolerated Patient Instructions: Antibiotic Form Stand Alone Forms: General Discharge Information Follow-up/Referrals: Galo Martínez MD [Physician] - 3 Weeks Discharge Medications: New ibuprofen 600 mg Tablet 600 mg PO Q6H PRN (Reason: Cramping) Qty: 30 0RF Continued ferrous sulfate [FeroSul] 325 mg (65 mg iron) tablet 65 mg PO BIDWMEAL Qty: 100 3RF Se-Admien-19 29 mg iron- 1 mg tablet 1 tablet PO DAILY Qty: 100 2RF Date of admission: 03/05/23 22:30 Primary Care Provider: Kenton Valero Admitting Provider: Galo Martínez Attending physician on admission: Galo Martínez Condition: Stable
[2023-03-07] MEDS: IBUPROFEN 600 MG TABLET PO (09:45)
[2023-03-07] MEDS: MULTIVIT/MIN/PREN/FOL AC/IRON TABLET 1 TAB PO (09:45)
[2023-03-07] MEDS: DOCUSATE SODIUM 100 MG CAPSULE PO (09:45)
[2023-03-07 10:02] VITALS: BP 122/86; PULSE 75; RESP 16; TEMP 36.7; O2SAT 100
--- NOTE | 2023-03-07 14:59 | PCCCNOTE ---
Care Coordination met with pt. this morning to discuss discharge planning and concerns. Pt.'s D/C plan is to return home with her other children and sig other who is also FOB. Pt. has a 2 year old son and 1 year old daughter at home. She confirms she has everything she needs for baby at home, she is in contact with her sister regarding a car seat for baby. Pt. is current with [facility] and has appointment to renew for this upcoming year now that baby has been born. Pt.'s sig other has been heard yelling at baby in room and caught rolling joints in room. Staff have educated FOB and security is aware of his drug use on the property. CC called in DCFS report with email marketing coordinator Marlena Olivas, per Marlena no investigation will take place at this time but they will contact pt. and FOB at time of D/C to offer additional resources. Intake ID [id number], [place] aware.
[2023-03-08 16:17] LABS: Rapid Plasma Reagin Non-Reactive (NonReactive)
== END 2023-03-07 14:25 | disposition home or self-care (01) | DRG 560 ==
LOC: ANHLDR 21:49 → ANHOB2 03-07 07:42 → ANHLDR 03-09 08:06 → ANHOB2 03-09 08:06
PROVIDERS: Admitting Provider Obstetrics & Gynecology; PCP Emergency Medicine; Visit Provider Obstetrics & Gynecology
DX: O99.824 Streptococcus B carrier state complicating childbirth (principal); Z3A.39 39 weeks gestation of pregnancy; Z37.0 Single live birth
CPT/HCPCS: 36415; 84112; 85014; 85018; 85025; 86592; 86703; 86850; 86900; 86901; A9270; G0432; J0290; J2590; J2795; J7120